=== PATIENT | female | born 1975 | race Caucasian/White ===

== ENCOUNTER → 2019-07-06 17:40 | Outpatient (CLI) | payer MEDICARE, SELFPAY | PROVIDERS: Visit Provider Podiatrist | DX: L57.0 Actinic keratosis (principal); L84 Corns and callosities | CPT/HCPCS: 87102; 87206; 87220; 88305 ==

== ENCOUNTER → 2023-07-26 14:44 | Outpatient (CLI) | payer MEDICAID, SELFPAY ==
--- NOTE | 2023-07-26 14:49 | MM_ITS ---
PROCEDURE INFORMATION: Exam: MG Bilateral Screening 3D Mammography Exam date and time: 07/26/2023 2:39 PM Age: 48 years old Clinical indication: Screening mammogram TECHNIQUE: Imaging protocol: Bilateral Screening tomosynthesis and 2D mammography including computer-aided detection (CAD) when performed. COMPARISON: No relevant prior studies available. FINDINGS: MAMMOGRAPHY: Breast composition: The breast is heterogeneously dense, which may obscure small masses. Mass: None. Architectural distortion: No new or suspicious architectural distortion. Calcifications: No new or suspicious calcifications are present Asymmetric density: No new or suspicious asymmetric density is present Skin thickening: None. Axillary adenopathy: None. IMPRESSION: No mammographic evidence of malignancy. Recommend annual screening mammography unless otherwise clinically indicated. ASSESSMENT: BI-RADS category 1: Negative
== END ==
PROVIDERS: PCP Nurse Practitioner Family; Visit Provider Nurse Practitioner Family
DX: Z12.31 Encounter for screening mammogram for malignant neoplasm of breast (principal)
CPT/HCPCS: 77063; 77067

== ENCOUNTER 2023-10-03 19:40 | Emergency (ER) | payer MEDICAID, SELFPAY ==
[2023-10-03 19:47] VITALS: BP 125/85; PULSE 89; RESP 16; TEMP 36.8; O2SAT 97; BMI 24.7
--- NOTE | 2023-10-03 19:53 | XR_ITS ---
PROCEDURE INFORMATION: Exam: XR Left Knee Exam date and time: 10/03/2023 7:58 PM Age: 48 years old Clinical indication: Pain; Knee; Left; Additional info: Pain, swelling, redness, no injury TECHNIQUE: Imaging protocol: Radiologic exam of the left knee. Views: 3 views. COMPARISON: No relevant prior studies available. FINDINGS: Bones/joints: No acute fracture or malalignment. Minimal joint effusion. Soft tissues: Normal. IMPRESSION: Minimal joint effusion. No acute osseous findings.
[2023-10-03 19:59] VITALS: BP 125/88; PULSE 89; RESP 18; O2SAT 97
--- NOTE | 2023-10-03 20:08 | PC.NURSE ---
patient to rad
--- NOTE | 2023-10-03 20:11 | PC.NURSE ---
back to room per manager radio.
--- NOTE | 2023-10-03 20:28 | HMH.EDGENADL ---
Discharge Plan Disposition Patient Disposition: Home, Self-Care Condition: Good Prescriptions Prescriptions: New naproxen 500 mg tablet 500 mg PO BID Qty: 20 0RF No Action ibuprofen 600 mg tablet 600 mg PO Q6HP PRN (Reason: Pain) Patient Comments: TAKE 1 TABLET BY MOUTH EVERY 8 HOURS NEEDED cephalexin 500 mg capsule 500 mg PO Q8H Patient Comments: TAKE 1 CAPSULE BY MOUTH EVERY 8 HOURS FOR 10 DAYS levothyroxine 112 mcg tablet 112 mcg PO DAILY sumatriptan succinate 50 mg tablet 1 tab PO NEEDED PRN (Reason: Migraine Headache) atomoxetine 80 mg capsule 80 mg PO DAILY paroxetine HCl 40 mg tablet 40 mg PO DAILY mirtazapine 30 mg tablet 30 mg PO DAILY Vraylar 4.5 mg capsule 4.5 mg PO DAILY Patient Comments: TAKE 1 CAPSULE BY MOUTH ONCE DAILY oxybutynin chloride 10 mg tablet extended release 24hr 1 tab PO DAILY prazosin 2 mg capsule 2 mg PO DAILY terconazole 0.8 % cream 1 appful vaginal HS 3 Days Qty: 20 0RF Rx Instructions: apply one application, nightly for 3 nights olanzapine 5 MG tablet 5 mg PO HS Referrals Follow up/Referrals: Jonny Lopez DO [Staff Physician] - See instructions Mellissa Hooks [Primary Care Provider] - See instructions Activity Restrictions/Add. Instructions Additional Instructions/Restrictions: You were evaluated in the emergency department today. At this time, we feel that you likely have knee bursitis. Please pick up worker your prescription for anti-inflammatory at the pharmacy and take the full course as prescribed. Follow-up closely with orthopedics. We have provided you with information for Dr. Lopez. Also follow-up with your primary care provider over the next 3 days. Return to the emergency department for new or worsening symptoms. Clinical Impressions Clinical Impression: Bursitis of left knee Instructions Patient Instructions: DI for Bursitis, DI for Knee Pain Discharge ED Provider: Nuvia Teixeira General Adult HPI General Chief complaint: Extremity Injury, Lower Stated complaint: LT knee pain Time Seen by Provider: 10/03/23 19:59 Mode of Arrival: Family Vehicle Source of Information: Patient Limitations: No Limitations Description of Symptoms (Recalled from ER Triage Doc. by RN): 48 yo female presents with left posterior knee pain and erythema x1 month. No trauma. VSS. Afebrile. Has seen pcp but states is not able to get in to see the ortho prior to november History of Present Illness HPI narrative: This patient is a 48-year-old female who denies significant past medical history presenting to the emergency department for evaluation with concern for pain and swelling behind her left knee that has been going on for approximately a month. She states that she has seen her PCP but is not able to get into see Ortho until November. She denies any injuries, numbness, tingling, wounds, or other concerns. No fevers, chills, or other issues. The patient is otherwise been well. Related Data Home Medications Medication Instructions Recorded Confirmed olanzapine 5 mg tablet 5 mg PO HS Depression 08/31/18 10/03/23 atomoxetine 80 mg capsule 80 mg PO DAILY 02/14/23 10/03/23 cariprazine 4.5 mg capsule 4.5 mg PO DAILY 02/14/23 10/03/23 (Vraylar) cephalexin 500 mg capsule 500 mg PO Q8H 02/14/23 10/03/23 ibuprofen 600 mg tablet 600 mg PO Q6HP PRN Pain 02/14/23 10/03/23 levothyroxine 112 mcg tablet 112 mcg PO DAILY 02/14/23 10/03/23 mirtazapine 30 mg tablet 30 mg PO DAILY 02/14/23 10/03/23 oxybutynin chloride 10 mg 1 tab PO DAILY urinary 02/14/23 10/03/23 tablet,extended release 24 hr paroxetine HCl 40 mg tablet 40 mg PO DAILY 02/14/23 10/03/23 prazosin 2 mg capsule 2 mg PO DAILY 02/14/23 10/03/23 sumatriptan succinate 50 mg tablet 1 tab PO NEEDED PRN Migraine 02/14/23 10/03/23 Headache Previous Rx's Medication Instructions Recorded terconazole 0.8 % vaginal cream
[2023-10-03 21:19] VITALS: BP 116/72; PULSE 86; RESP 16; TEMP 36.6; O2SAT 98
== END 2023-10-03 21:20 | disposition home or self-care (01) ==
PROVIDERS: Emergency Provider Emergency Medicine; PCP Nurse Practitioner Family
DX: M70.52 Other bursitis of knee, left knee (principal); M25.562 Pain in left knee; M25.462 Effusion, left knee; X58.XXXA Exposure to other specified factors, initial encounter
CPT/HCPCS: 73562; 96372; 99283

== ENCOUNTER 2024-12-29 13:28 | Emergency (ER) | payer MEDICAID, SELFPAY ==
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
[2024-12-29 13:40] VITALS: BP 133/57; PULSE 82; RESP 16; TEMP 37; O2SAT 97; BMI 31.3
--- NOTE | 2024-12-29 13:56 | XR_ITS ---
FINAL REPORT CLINICAL HISTORY: Fall, thigh pain FINDINGS: Left knee Three views were obtained. There is no fracture or dislocation. The joint spaces appear normal. No soft tissue abnormality is identified. IMPRESSION: No acute process. Reviewed, Interpreted and Dictated by Dragan Lr MD Transcribed by Laura Dickens Authenticated and . [facility]
--- NOTE | 2024-12-29 13:56 | XR_ITS ---
FINAL REPORT CLINICAL HISTORY: For fever pain FINDINGS: Left hip Three views were obtained. There is no fracture or dislocation. The joint spaces appear normal. No soft tissue abnormality is identified. IMPRESSION: No acute process. Reviewed, Interpreted and Dictated by Dragan Lr MD Transcribed by Laura Dickens Authenticated and . [facility]
[2024-12-29] MEDS: ACETAMINOPHEN 500MG TAB 1000 MG PO (14:20)
[2024-12-29] MEDS: METHOCARBAMOL 500MG TABLET 500 MG PO (14:20)
[2024-12-29] MEDS: IBUPROFEN 400 MG TABLET 800 MG PO (14:20)
[2024-12-29] MEDS: LIDOCAINE 5% TRANSDERMAL PATCH 1 EACH TP (14:20)
--- NOTE | 2024-12-29 14:27 | XR_ITS ---
FINAL REPORT TECHNIQUE: 4 views left femur CLINICAL HISTORY: Fall, left upper leg pain COMPARISON: None FINDINGS: LEFT FEMUR: 4 images of the left femur were obtained. There is no evidence of fracture or dislocation. The joint spaces are intact. There is no soft tissue abnormality identified. IMPRESSION: No acute bony abnormality. Reviewed, Interpreted and Dictated by Dragan Lr MD Transcribed by Dang Mallory Authenticated and [facility]
[2024-12-29 15:36] VITALS: BP 138/85; PULSE 76; RESP 17; TEMP 37; O2SAT 98
== END 2024-12-29 15:38 | disposition home or self-care (01) ==
PROVIDERS: Emergency Provider Emergency Medicine; PCP Nurse Practitioner Family
DX: M79.652 Pain in left thigh (principal); W18.39XA Other fall on same level, initial encounter; Y93.89 Activity, other specified; Y92.007 Garden or yard of unspecified non-institutional (private) residence as the place of occurrence of the external cause
CPT/HCPCS: 73502; 73552; 73562; 99283

== ENCOUNTER 2025-01-03 15:55 | Emergency (ER) | payer MEDICAID, SELFPAY ==
[2025-01-03] VITALS (7 sets, daily range): BP systolic 103–135; BP diastolic 72–88; PULSE 69–86; RESP 16–18; TEMP 36.7–36.8; O2SAT 95–100; BMI 31.3
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
--- NOTE | 2025-01-03 16:14 | XR_ITS ---
PROCEDURE INFORMATION: Exam: XR Right Femur Exam date and time: 01/03/2025 4:29 PM Age: 49 years old Clinical indication: Pain; Thigh; Right; Additional info: [place] pop in R hip, pain, nwb TECHNIQUE: Imaging protocol: Radiologic exam of the right femur. Views: 2 views. COMPARISON: CR XR FEMUR RT 2V 01/03/2025 4:29 PM FINDINGS: Bones/joints: There is no evidence of acute fracture.There is no evidence of malalignment or dislocation. Soft tissues: Unremarkable. IMPRESSION: There is no evidence of acute fracture.There is no evidence of malalignment or dislocation.
--- NOTE | 2025-01-03 16:14 | XR_ITS ---
PROCEDURE INFORMATION: Exam: XR Right Hip Exam date and time: 01/03/2025 4:29 PM Age: 49 years old Clinical indication: Hip pain; Right hip; Additional info: [place] pop in R hip, pain, nwb TECHNIQUE: Imaging protocol: Radiologic exam of the right hip. Views: 2 or 3 views hip with pelvis when performed. COMPARISON: CR XR FEMUR RT 2V 01/03/2025 4:29 PM FINDINGS: Bones/joints: There is no evidence of acute fracture.There is no evidence of malalignment or dislocation. Soft tissues: Unremarkable. IMPRESSION: There is no evidence of acute fracture.There is no evidence of malalignment or dislocation.
[2025-01-03] MEDS: LIDOCAINE 5% TRANSDERMAL PATCH 1 EACH TP (16:38)
[2025-01-03] MEDS: METHOCARBAMOL 500MG TABLET 500 MG PO (16:38)
[2025-01-03] MEDS: ACETAMINOPHEN 500MG TAB 1000 MG PO (16:38)
[2025-01-03] MEDS: KETOROLAC 30MG/ML VIAL 30 MG IM (16:39)
--- NOTE | 2025-01-03 17:00 | ED_ITS ---
Discharge Plan Disposition Patient Disposition: Home, Self-Care Condition: Good Prescriptions Prescriptions: No Action levothyroxine 112 mcg tablet 112 mcg PO DAILY paroxetine HCl 40 mg tablet 40 mg PO DAILY mirtazapine 30 mg tablet 30 mg PO DAILY prazosin 2 mg capsule 2 mg PO DAILY Vraylar 4.5 mg capsule 6 mg PO DAILY Patient Comments: TAKE 1 CAPSULE BY MOUTH ONCE DAILY buprenorphine-naloxone [Suboxone] 8-2 mg film sublingual meloxicam 7.5 mg tablet 7.5 mg PO Patient Comments: TAKE ONE TABLET BY MOUTH ONCE DAILY NEEDED buspirone 30 mg tablet 30 mg PO Patient Comments: TAKE ONE TABLET BY MOUTH TWICE DAILY citalopram 10 mg tablet 10 mg PO Patient Comments: TAKE ONE TABLET BY MOUTH DAILY FOR depression trazodone 50 mg tablet 50 mg PO Patient Comments: TAKE ONE TABLET BY MOUTH NIGHTLY AT BEDTIME quetiapine 100 mg tablet 100 mg PO Patient Comments: TAKE ONE TABLET BY MOUTH AT BEDTIME guanfacine 2 mg tablet extended release 24 hr PO Patient Comments: TAKE ONE TABLET BY MOUTH EVERY EVENING for ADHD propranolol 20 mg tablet 20 mg PO Patient Comments: TAKE ONE TABLET BY MOUTH TWICE DAILY NEEDED FOR panic cetirizine 10 mg tablet 10 mg PO Patient Comments: TAKE ONE TABLET BY MOUTH ONCE DAILY polyethylene glycol 3350 [ClearLax] 17 gram/dose powder 17 g PO Patient Comments: mix 17 grams into 8 ounces of liquid and drink once daily for constipation famotidine 40 mg tablet 40 mg PO Patient Comments: TAKE ONE TABLET BY MOUTH ONCE DAILY NEEDED prazosin 5 mg capsule 5 mg PO Patient Comments: TAKE ONE CAPSULE BY MOUTH AT BEDTIME permethrin 5 % cream topical Patient Comments: APPLY (THOROUGHLY MASSAGE INTO SKIN FROM HEAD TO SOLES OF FEET) BY TOPICAL ROUTE ONCE LEAVE ON FOR 8-14 HouRs, THEN REMOVE BY THOROUGH WASHING lamotrigine 200 mg tablet 200 mg PO Patient Comments: TAKE ONE TABLET BY MOUTH EVERY DAY methocarbamol 750 mg tablet 750 mg PO Q6H PRN (Reason: muscle spasm) Qty: 20 0RF Referrals Follow up/Referrals: Jonny Lopez DO [Staff Physician] - See instructions Mellissa Hooks [Primary Care Provider] - See instructions Activity Restrictions/Add. Instructions Additional Instructions/Restrictions: You were evaluated in the emergency department today. Please follow-up closely with orthopedics as well as with your primary care provider if you continue to have significant hip pain. Take Tylenol and ibuprofen every 4-6 hours as needed for pain. Return to the emergency department for new or worsening symptoms. Clinical Impressions Clinical Impression: Acute pain of right hip Stand Alone Forms Stand Alone Forms: Work/School Release Instructions Patient Instructions: DI for Muscle Strain, DI for Hip Pain Print Language Print Language: Swedish Discharge ED Provider: Nuvia Teixeira General Adult HPI General Chief complaint: Extremity Injury, Lower Stated complaint: right leg pain and cant walk on it Time Seen by Provider: 01/03/25 16:07 Mode of Arrival: Ambulatory Source of Information: Patient Limitations: No Limitations Description of Symptoms (Recalled from ER Triage Doc. by RN): Patient presents to triage via wheelchair. States yesterday she was walking when she heard a pop. States today, the pain in her right leg has been so intense she cannot walk on it. States she had a similar problem with her left leg two weeks ago. Patient states she is on Suboxone and requests no opiates. Patient tearful in triage. History of Present Illness HPI narrative: This patient is a 49-year-old female with history of depression, anxiety, bipolar disorder, OCD, and hypothyroidism presenting to the emergency department for evaluation with concern for right leg pain. Patient states she was walking yesterday and heard a loud pop in her leg. No fall noted. She states that since then, she has not been able to bear weight on her right lower extremity to walk. Pain is about her right hip. No numbness, tingling, or other concerns. Of note, patient was seen here 12/29/24 with similar complaints of her left lower extremity after a fall. At that time, x-rays were reassuring. She notes that her left leg is been doing a lot better since then and she is now able to walk on her left leg, is just the right leg this now her only concern. Related Data Home Medications ?Medication ?Instructions ?Recorded ?Confirmed levothyroxine 112 mcg tablet 112 mcg PO DAILY 02/14/23 12/29/24 mirtazapine 30 mg tablet 30 mg PO DAILY 02/14/23 12/29/24 paroxetine HCl 40 mg tablet 40 mg PO DAILY 02/14/23 12/29/24 prazosin 2 mg capsule 2 mg PO DAILY 02/14/23 12/29/24 buprenorphine 8 mg-naloxone 2 mg sublingual 12/29/24 12/29/24 sublingual film (Suboxone) buspirone 30 mg tablet 30 mg PO 12/29/24 12/29/24 cariprazine 4.5 mg capsule 6 mg PO DAILY 12/29/24 12/29/24 (Vraylar) cetirizine 10 mg tablet 10 mg PO 12/29/24 12/29/24 citalopram 10 mg tablet 10 mg PO 12/29/24 12/29/24 famotidine 40 mg tablet 40 mg PO 12/29/24 12/29/24 guanfacine 2 mg tablet,extended mg PO 12/29/24 12/29/24 release 24 hr lamotrigine 200 mg tablet 200 mg PO 12/29/24 12/29/24 meloxicam 7.5 mg tablet 7.5 mg PO 12/29/24 12/29/24 permethrin 5 % topical cream applic topical 12/29/24 12/29/24 polyethylene glycol 3350 17 17 g PO 12/29/24 12/29/24 gram/dose oral powder (ClearLax) prazosin 5 mg capsule 5 mg PO 12/29/24 12/29/24 propranolol 20 mg tablet 20 mg PO 12/29/24 12/29/24 quetiapine 100 mg tablet 100 mg PO 12/29/24 12/29/24 trazodone 50 mg tablet 50 mg PO 12/29/24 12/29/24 Previous Rx's ?Medication ?Instructions ?Recorded methocarbamol 750 mg tablet 750 mg PO Q6H PRN muscle spasm #20 12/29/24 tabs Allergies Allergy/AdvReac Type Severity Reaction Status Date / Time latex (LATEX) Allergy Unknown Unknown Verified 12/29/24 14:51 allergy reaction morphine (MORPHINE) Allergy Unknown Unknown Verified 12/29/24 14:51 allergy reaction milk AdvReac Nausea Verified 12/29/24 14:51 Milk Containing Products AdvReac Nausea Verified 12/29/24 14:51 (Dairy) [facility] Disclaimer: The information contained in this section may have been updated after the patient was seen, as this information can be updated by other users. Medical History History of hyperthyroidism OCD (obsessive compulsive disorder) Migraine Depression Anxiety Bipolar 1 disorder Surgical History H/O tubal ligation H/O thyroidectomy Social History Smoking Status: Never smoker alcohol intake: current alcohol intake frequency: a few times a month substance use type: denies use current occupational status: disabled Travel in the last 8 weeks: None Have you lived/traveled outside US in past 30 days?: No Contact w/someone who lives/traveled outside US past 30 days?: No Exposure to someone with infectious disease in past 14 days?: No Do you have a fever (greater than 100.4 F or 38 C)?: No Have you tested positive for COVID-19: No Exposed to someone with COVID-19 in past 14 days?: No Do you have a sore throat?: No Do you have a cough?: No Do you have any weakness?: No Do you have any diarrhea?: No Are you experiencing any unusual bleeding?: No Do you have any muscle aches/pain?: No Do you have any abdominal pain?: No Are you experiencing loss of taste or smell?: No Other Medical History Have you received the Pneumonia Vaccine: No ROS Obtained: Yes All systems reviewed & no additional complaints except as documented Physical Exam General General appearance: alert and in no apparent distress Head Head exam: atraumatic and normocephalic Eye Eye exam: Present normal appearance, PERRL and EOMI ENT ENT exam: Present normal exam, normal oropharynx, mucous membranes moist and normal external ear exam Neck Neck exam: Present normal inspection, full ROM and trachea midline; Absent tenderness Chest Chest inspection: Present normal inspection and symmetric chest wall rise; Absent tenderness Respiratory Respiratory exam: Present normal lung sounds bilaterally; Absent respiratory distress, wheezes, stridor or accessory muscle use Cardiovascular Cardiovascular exam: Present regular rate and normal rhythm Abdominal Exam Abdominal exam: Present soft; Absent distention, tenderness or guarding Extremities Exam Extremities exam: Present tenderness, normal capillary refill and other (Tender to palpation of the right hip with no obvious deformity noted. Limited range of motion of the right hip secondary to pain. No redness, warmth, skin changes. Neurovascularly intact distally.); Absent full ROM or edema Back Exam Back exam: Present normal inspection and full ROM; Absent tenderness Neurological Exam Neurological exam: Present alert, oriented X3 and CN II-XII intact; Absent motor sensory deficit Psychiatric Psychiatric exam: Present normal affect and normal mood Skin Skin exam: Present warm and dry Medical Decision Making Medical Records Medical records reviewed: Yes I reviewed the patient's medical records. Screening: Per USPSTF and CDC recommendations, given the prevalence of disease in our region, it is our hospital?s policy to screen for HIV and viral Hepatitis for all patients aged 18 and over and those with ongoing risk factors. Danish Inquiry Pt receiving controlled substance: No Vital Signs: 01/03/25 15:58 01/03/25 16:15 01/03/25 16:50 Temperature 98.1 F Temperature Source Oral Pulse Rate 78 86 Pulse Rate [Radial] 83 Respiratory Rate 16 Blood Pressure 135/88 103/72 L Blood Pressure [R Arm] 133/88 Blood Pressure Mean Blood Pressure Mean [R Arm] 103 Blood Pressure Source Blood Pressure Position 02 Sat by Pulse Oximetry 98 100 95 Oxygen Delivery Method Room Air Room Air Room Air 01/03/25 17:00 01/03/25 17:30 01/03/25 18:00 Temperature Temperature Source Pulse Rate 73 73 69 Pulse Rate [Radial] Respiratory Rate Blood Pressure 119/74 111/80 130/78 Blood Pressure [R Arm] Blood Pressure Mean 91 Blood Pressure Mean [R Arm] Blood Pressure Source Blood Pressure Position 02 Sat by Pulse Oximetry 97 97 96 Oxygen Delivery Method Room Air Room Air Room Air 01/03/25 18:20 Temperature 98.2 F Temperature Source Oral Pulse Rate 74 Pulse Rate [Radial] Respiratory Rate 18 Blood Pressure 122/74 Blood Pressure [R Arm] Blood Pressure Mean Blood Pressure Mean [R Arm] Blood Pressure Source Automatic Cuff Blood Pressure Position Sitting 02 Sat by Pulse Oximetry Oxygen Delivery Method Room Air Lab Data Lab results reviewed: Yes I reviewed the patient's lab results. Orders (Tests/Meds): ED MEDICATIONS Discontinued Medications Generic Name Dose Route Start Last Admin Trade Name Freq PRN Reason Stop Dose Admin Acetaminophen 1,000 mg 01/03/25 16:14 01/03/25 16:38 Acetaminophen 500mg Tab PO 01/03/25 16:15 1,000 mg ONCE ONE Administration Ketorolac Tromethamine 30 mg 01/03/25 16:14 01/03/25 16:39 Ketorolac 30mg/Ml Vial IM 01/03/25 16:15 30 mg ONCE ONE Administration Lidocaine 1 each 01/03/25 16:14 01/03/25 16:38 Lidocaine 5% Transdermal Patch TP 01/03/25 16:15 1 each ONCE ONE Administration Methocarbamol 500 mg 01/03/25 16:15 01/03/25 16:38 Methocarbamol 500mg Tablet PO 01/03/25 16:16 500 mg ONCE ONE Administration ORDERS Category Date Time Status Femur XR right 2 views [XR femur RT 2V] Stat Exams 01/03/25 16:14 Completed Hip XR right minimum 2 views [XR hip RT 2-3V w/pelvis] Exams 01/03/25 16:14 Completed Stat Knee XR right 3 views [XR knee RT 3V] Stat Exams 01/03/25 16:14 Completed Medical Decision Narrative: In summary, this patient is a 49-year-old female presenting to the Emergency Department for evaluation of right hip pain after feeling a pop while walking. Differential diagnoses considered include but are not limited to fracture, contusion, strain/sprain, avascular necrosis, neurovascular injury. Ruling out the most morbid conditions drove assessment. It should be noted patient's history includes psychiatric history which is not at goal therapy. This complicates all aspects of care by increasing patient's risk for morbidity. I reviewed patient's past medical records and noted evaluation 12/29/24 for left thigh pain, at which point x-rays are reassuring and the patient was discharged. She notes that her pain in her left hip is doing better. On exam, the patient is lying in bed. She is tearful and tender over her right hip, limited range of motion of the right hip secondary to pain. Neurovascularly intact. All compartments soft. Workup included x-rays of the right hip/pelvis, right femur, right knee. Patient is on Suboxone, so for pain she was given IM Toradol, oral Tylenol, oral Robaxin, topical Lidoderm patch.. I independently interpreted x-rays prior to the radiologist read and noted no acute fracture. Please see their read for final interpretation. On reassessment, patient is feeling better. She remains neurovascularly intact in her extremity. She is able to ambulate and bear weight, but she has some pain and trouble with it. Given this, I provided her with crutches. Given continued pain with negative x-rays, I recommended close follow-up with orthopedics. She expressed understanding and agreement. The patient was discharged after all questions were answered with instructions for close follow- up with orthopedics and instructions for supportive management. Critical Care Critical Care Time Critical Care Time: No
--- NOTE | 2025-01-03 18:01 | PC.NURSE ---
ROUNDED ON THE PT. THE PT VOICES THAT SHE DOES NOT NEED ANYTHING AT THIS TIME. CALL LIGHT IS WITHIN REACH OF THE PT.
--- NOTE | 2025-01-03 18:14 | PC.NURSE ---
PT AMBULATED WITH LIMP, BUT REPORTS PAIN IS BETTER
--- NOTE | 2025-01-03 18:16 | PC.NURSE ---
DR CAREY AT BEDSIDE TO UPDATE PT
== END 2025-01-03 18:20 | disposition home or self-care (01) ==
PROVIDERS: Emergency Provider Emergency Medicine; PCP Nurse Practitioner Family
DX: M25.551 Pain in right hip (principal); M79.604 Pain in right leg
CPT/HCPCS: 73502; 73552; 73562; 96372; 99283; J1885

== ENCOUNTER 2025-01-25 08:56 | Outpatient (CLI) | payer MEDICAID, SELFPAY ==
--- NOTE | 2025-01-25 09:02 | MR_ITS ---
FINAL REPORT CLINICAL HISTORY: Bilateral hip pain and pelvis pain after a fall. pain worse on the right side FINDINGS: Multiplanar MR images of the pelvis were performed without contrast. There is extensive marrow edema of the right femoral neck where there is a transverse, nondisplaced fracture of the intertrochanteric right femur. There is mild surrounding soft tissue edema. There is moderate marrow edema of the medial left femoral neck and proximal femoral shaft which is incomplete. Fracture extends just above the lesser trochanter into the intertrochanteric neck likely representing a stress fracture. There are mild degenerative changes of the hips bilaterally. A moderate-sized joint effusion is seen. Muscles and tendons are unremarkable. Labrum is intact. IMPRESSION: Subacute, nondisplaced intertrochanteric right femoral fracture. Incomplete fracture of the left femoral neck and proximal femoral shaft likely related to stress fracture. BJ, at Dr. Baker' office was notified of these findings at 11:18 AM. Reviewed, Interpreted and Dictated by Sandra Galeano MD Transcribed by Bernadine Du Authenticated and [facility]
== END 2025-01-25 23:59 | disposition home or self-care (01) ==
LOC: RAD 08:57
PROVIDERS: PCP Nurse Practitioner Family; Visit Provider Physician Assistant
DX: M25.551 Pain in right hip (principal); M25.552 Pain in left hip
CPT/HCPCS: 72195

== ENCOUNTER 2025-02-01 07:45 | Outpatient (CLI) | payer MEDICAID, SELFPAY ==
--- NOTE | 2025-02-01 08:13 | ECG_ITS ---
APPROVED REPORT Exam: Resting ECG HR:85 bpm ECG Measurements Heart Rate 85 AXES MO 130 P 63 QRSd 110 QRS 24 QT 383 T 37 QTc 426 Conclusion SINUS RHYTHM LOW QRS VOLTAGE IN PRECORDIAL LEADS [QRS DEFLECTION < 1.0 mV IN CHEST LEADS] NONSPECIFIC T-WAVE ABNORMALITY BORDERLINE ECG UNCONFIRMED REPORT Electronically signed by : Zay Rajput MD 02/01/2025 13:59:41
[2025-02-01 08:20] VITALS: BMI 31.3
[2025-02-01 10:34] LABS: Basophils # 0.1 K/mm3 (0-0.2); Basophils % 0.7 % (0.1-2.0); Eosinophils # 0.3 K/mm3 (0.0-0.4); Eosinophils % 3.7 % (0.1-12.0); Hematocrit 33.1 % (37.0-47.0); Hemoglobin 10.9 g/dL (12.2-16.2); Lymphocytes # 2.1 K/mm3 (0.7-4.5); Lymphocytes % 31.2 % (10-50); Mean Corpuscular HGB Conc 32.9 g/dL (31.8-35.4); Mean Corpuscular Hemoglobin 30.1 pg (27.0-31.2); Mean Corpuscular Volume 91.4 fl (81-99); Mean Platelet Volume 9.8 fl (7.4-10.4); Monocytes # 0.5 K/mm3 (0.1-1.0); Monocytes % 6.7 % (1.7-9.3); Neutrophils # 3.9 K/mm3 (1.8-7.8); Neutrophils % 57.4 % (37.0-80.0); Platelet Count 279 K/mm3 (142-424); Red Blood Count 3.62 M/mm3 (4.20-5.40); Red Cell Distribution Width 12.4 % (11.5-17.5); White Blood Count 6.7 K/mm3 (4.8-10.8)
[2025-02-01 10:37] LABS: Chloride 107 mmol/L (98-107); Sodium 141 mmol/L (136-145)
[2025-02-01 10:40] LABS: Blood Urea Nitrogen 22 mg/dl (7-17); Carbon Dioxide 27 mmol/L (22.0-30.0); Creatinine Clearance Estimated 110 mL/min (50-200); Estimated Glomerular Filt Rate 77 ml/min (>60); GFR (African American) 93 ML/MIN (>60)
[2025-02-01 10:41] LABS: Calcium 9.5 mg/dl (8.4-10.2); Glucose 101 mg/dl (74-100)
== END 2025-02-01 23:59 | disposition home or self-care (01) ==
LOC: PREOP 07:46
PROVIDERS: Nurse Anesthetist, Certified Registered; PCP Nurse Practitioner Family; Visit Provider Orthopaedic Surgery
DX: Z01.810 Encounter for preprocedural cardiovascular examination (principal); R94.31 Abnormal electrocardiogram [ECG] [EKG]
CPT/HCPCS: 80048; 85025; 93005

== ENCOUNTER 2025-02-03 18:18 | Inpatient (IN) | payer MEDICAID, SELFPAY ==
--- NOTE | 2025-01-28 15:04 | SW/DCPLANNER ---
Addendum entered by Smiley Byrd RN 02/05/25 10:17: Patient Choice signed for [facility]. Order for BSC and rolling walker faxed and will be delivered to bedside prior to discharge. Addendum entered by Dana Agustin 02/05/25 08:23: Patient is alert and oriented this AM. Patient states that she feels comfortable to return home today but will need a bedside commode and a rolling walker. Patient is agreeable to outpatient PT services in [place]. I did inform patient that her friend America had left me a voicemail regarding discharge planning. Patient stated that she will contact America back later this afternoon. Patient should discharge home today. Addendum entered by Dana Agustin 02/04/25 13:04: Patient plans to return home w/ spouse tomorrow and establish care w/ outpatient PT in [place] on 02/08. Patient voiced she will need a rolling walker from [facility] prior to discharge. Addendum entered by Dana Agustin 02/04/25 09:24: PT/OT evaluation has been ordered and I will follow up w/ patient once completed. Addendum entered by Dana Agustin 01/28/25 15:43: I have contacted Eryn pulliam/ [place] outpatient PT and scheduled patient for therapy on next available date 02/08/2025 at 9AM. I have also contacted Dr Coffey office and asked that an outpatient PT order be faxed to [facility]. Original Note: I called and spoke w/ this patient regarding upcoming procedures. Patient stated that she resides at home w/ her boyfriend whom is home w/ her 24-7. Patient stated that she plans to return back home at time of discharge. I did explain to patient that I would not be able to establish w/ home health services but could set up outpatient PT in [place]. Patient is agreeable to outpatient services and stated that she will have transportation. Patient stated that she is currently using crutches at home but would benefit from a rolling walker. CM will order a rolling walker at time of hospital admission. I will continue to follow up w/ this patient and assist w/ any new needs or orders.
[2025-01-29 08:24] VITALS: BMI 31.3
[2025-02-01 10:03] VITALS: BMI 31.3
[2025-02-03] VITALS (18 sets, daily range): BP systolic 117–159; BP diastolic 57–88; PULSE 81–126; RESP 16–18; TEMP 36.4–43; O2SAT 94–99; BMI 31.4
[2025-02-03 11:51] LABS: HCG Qualitative, Serum Negative (Negative)
[2025-02-03] MEDS: LACTATED RINGERS 1000ML 1,000 ML 100 ML IV (11:57)
--- NOTE | 2025-02-03 13:57 | P.PNANES_ITS ---
[facility] Disclaimer: The information contained in this section may have been updated after the patient was seen, as this information can be updated by other users. Medical History History of thyroid cancer History of hyperthyroidism OCD (obsessive compulsive disorder) Migraine Depression Anxiety Bipolar 1 disorder Surgical History History of D&C H/O tubal ligation H/O thyroidectomy Family History Other No significant family history Social History (Updated 02/03/25 @ 11:48 by Natasha Spann RN) Smoking Status: Never smoker alcohol intake: never substance use type: denies use current occupational status: unemployed Travel in the last 8 weeks: None Have you lived/traveled outside US in past 30 days?: No Contact w/someone who lives/traveled outside US past 30 days?: No Exposure to someone with infectious disease in past 14 days?: No Do you have a fever (greater than 100.4 F or 38 C)?: No Have you tested positive for COVID-19: No Exposed to someone with COVID-19 in past 14 days?: No Do you have a sore throat?: No Do you have a cough?: No Do you have any weakness?: No Are you experiencing any nausea/vomitting?: No Do you have any diarrhea?: No Are you experiencing any unusual bleeding?: No Do you have any muscle aches/pain?: No Do you have any abdominal pain?: No Are you experiencing loss of taste or smell?: No [facility] Anesthesia Checklist Patient Identification Patient Identification: Arm Band Structural Data Admitted From: Home Planned Operative Procedure/s: Right Femur Cephalomedullary Nailing, Percutaneous Fixation Left Femur Consent for Planned Operative Procedure(s) Verified: Yes Verified Documents: Surgical Consent NPO Status Verified Time NPO: 00:00 Additional verifications Anesthesia Reactions: No Hx Blood Transfusions: No Blood Transfusion Reaction: No Airway Assessment Mallampati Score:: Class II C-Spine Mobility Assessed: Yes TMJ Mobility Assessed: Yes Dentition: Dentures-good fit (removed) Neurological Assessment Level of Consciousness: Awake, Alert and Appropriate Anesthesia Plan Anesthesia Risk discussed: Yes Anesthesia Plan: Verified ASA Class: III Anesthesia Type: General
[2025-02-03] MEDS: CEFAZOLIN SODIUM 2 GM in 0.9 % SODIUM CHLORIDE 100 ML IV (15:00)
--- NOTE | 2025-02-03 17:14 | SUR.OPER ---
1551- time out performed for left side first at this time 1647- time out performed for right side
--- NOTE | 2025-02-03 18:28 | XR_ITS ---
FINAL REPORT CLINICAL HISTORY: NAILING IN OR 4.2 MIN 72.68 mGy FINDINGS: FLUOROSCOPY LESS THAN 1 HOUR HISTORY: FINDINGS: Fluoroscopic guidance was provided for needle placement in right proximal femur. 2 spot films were obtained. 4.2 minutes of fluoroscopy time were used, with a dosage of 72.68 mGy. IMPRESSION: As above. Reviewed, Interpreted and Dictated by Dragan Lr MD Transcribed by Dang Mallory Authenticated and [facility]
--- NOTE | 2025-02-03 18:28 | XR_ITS ---
FINAL REPORT CLINICAL HISTORY: FEMORAL NAILING IN OR 1.3 MIN 34.18 mGy COMPARISON: None FINDINGS: FLUOROSCOPY LESS THAN 1 HOUR HISTORY: FINDINGS: Fluoroscopic guidance was provided for orthopedic canal placement in left hip. 2 spot films were obtained. 1.3 minutes of fluoroscopy time were used, with a dosage of 34.18 mGy. IMPRESSION: As above. Reviewed, Interpreted and Dictated by Dragan Lr MD Transcribed by Dang Mallory Authenticated and . [facility]
--- NOTE | 2025-02-03 18:42 | P.PNANES_ITS ---
[facility] Anesthesia Record Part I Anesthesia Record I Intake, IV Amount: 1,600 Hydration: Adequate Estimated blood loss (mL): 350 Urine output (mL): 475 Blood Products used (#): none Blood Pressure: 117/59 SaO2: 97 Pulse Rate: 125 Airway Patency: Patent Respiratory Rate: 18 Temperature: 97.6 F Patient is:: Awake (Crying) and Stable Stable to PACU at:: 18:35
[2025-02-03] MEDS: HYDROMORPHONE 2MG/ML SYRINGE IV ×2 (18:45→18:55)
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
[2025-02-03] MEDS: LACTATED RINGERS 1000ML 1,000 ML 50 ML IV (20:31)
[2025-02-03] MEDS: HYDROMORPHONE 2MG/ML SYRINGE 0.5 MG IV (20:31)
[2025-02-03 20:36] LABS: Basophils # 0.1 K/mm3 (0-0.2); Basophils % 0.4 % (0.1-2.0); Eosinophils % 0.2 % (0.1-12.0); Hematocrit 30.6 % (37.0-47.0); Hemoglobin 10.2 g/dL (12.2-16.2); Lymphocytes % 6.8 % (10-50); Mean Corpuscular HGB Conc 33.3 g/dL (31.8-35.4); Mean Platelet Volume 9.2 fl (7.4-10.4); Monocytes # 0.3 K/mm3 (0.1-1.0); Neutrophils # 13.5 K/mm3 (1.8-7.8); Neutrophils % 90.2 % (37.0-80.0); Platelet Count 286 K/mm3 (142-424); Red Blood Count 3.29 M/mm3 (4.20-5.40); White Blood Count 14.9 K/mm3 (4.8-10.8)
[2025-02-03 20:37] LABS: Chloride 103 mmol/L (98-107); Sodium 137 mmol/L (136-145)
[2025-02-03 20:40] LABS: Blood Urea Nitrogen 15 mg/dl (7-17); Carbon Dioxide 27 mmol/L (22.0-30.0); Creatinine Clearance Estimated 110 mL/min (50-200); Estimated Glomerular Filt Rate 77 ml/min (>60); GFR (African American) 93 ML/MIN (>60); MANUAL DIFFERENTIAL MANUAL DIFFERENTIAL (MANUAL DIFF)
[2025-02-03 20:41] LABS: Calcium 9.5 mg/dl (8.4-10.2); Glucose 127 mg/dl (74-100)
[2025-02-03] MEDS: CEFAZOLIN SODIUM 1 GM in 0.9 % SODIUM CHLORIDE 50 ML IV (21:03)
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
[2025-02-03 21:16] LABS: Lymphocytes % 9 % (10-50); Neutrophils % 91 % (42-76); Total Cells Counted 100
[2025-02-03 21:17] LABS: Platelet Estimate Normal; Stomatocytes 1+
[2025-02-03 22:06] LABS: Microscopic,Cath URINE MICROSCOPIC (MICROSCOPIC)
[2025-02-03 22:50] LABS: Appearance,Urine/Cath Clear (Clear); Color,Urine/Cath Yellow (Yellow); PH,Urine/Cath 7.5 (5.0-8.5)
[2025-02-03 22:51] LABS: Bilirubin,Cath Negative (Negative); Blood, Urine/Cath Negative (Negative); Glucose,Urine/Cath (UA) Negative (Negative); Ketones,Urine/Cath Negative (Negative); Leukocyte Esterase,Cath Negative (Negative); Nitrate,Cath Negative (Negative); Protein,Urine/Cath Negative (Negative); Urobilinogen,Cath 0.2 EU/dl (0.2)
[2025-02-03] MEDS: HYDROCODONE/APAP 5/325 MG TABLET 2 TAB PO (23:09)
[2025-02-03 23:19] LABS: Amorphous Sediment,Ur/Cath 1+ /lpf; RBC,Urine/Cath Occasional # /hpf (0-3); WBC,Urine/Cath Occasional #/hpf (0-3)
--- NOTE | 2025-02-03 23:36 | PC.NURSE ---
pt arrived to floor from PACU via bed at 1920.
[2025-02-04] VITALS (9 sets, daily range): BP systolic 104–132; BP diastolic 53–81; PULSE 90–116; RESP 16–20; TEMP 36.4–36.9; O2SAT 94–100; BMI 31.8
[2025-02-04] MEDS: HYDROMORPHONE 2MG/ML SYRINGE 0.5 MG IV ×4 (04:48→19:18)
[2025-02-04] MEDS: CEFAZOLIN SODIUM 1 GM in 0.9 % SODIUM CHLORIDE 50 ML IV (05:52)
[2025-02-04 06:45] LABS: Basophils % 0.4 % (0.1-2.0); Lymphocytes # 2.1 K/mm3 (0.7-4.5); Mean Corpuscular HGB Conc 32.1 g/dL (31.8-35.4); Mean Corpuscular Hemoglobin 29.6 pg (27.0-31.2); Mean Corpuscular Volume 92.1 fl (81-99); Mean Platelet Volume 9.8 fl (7.4-10.4); Monocytes # 0.7 K/mm3 (0.1-1.0); Monocytes % 9.5 % (1.7-9.3); Neutrophils # 4.9 K/mm3 (1.8-7.8); Neutrophils % 62.8 % (37.0-80.0); Platelet Count 254 K/mm3 (142-424); Red Blood Count 3.04 M/mm3 (4.20-5.40); White Blood Count 7.8 K/mm3 (4.8-10.8)
[2025-02-04 07:25] LABS: Anion Gap 10.9 mEq/L (5-15); Blood Urea Nitrogen 13 mg/dl (7-17); Calcium 8.7 mg/dl (8.4-10.2); Carbon Dioxide 29 mmol/L (22.0-30.0); Chloride 105 mmol/L (98-107); Creatinine Clearance Estimated 112 mL/min (50-200); Estimated Glomerular Filt Rate 77 ml/min (>60); GFR (African American) 93 ML/MIN (>60); Glucose 85 mg/dl (74-100); Potassium 3.9 mmoL/L (3.5-5.1); Sodium 141 mmol/L (136-145)
--- NOTE | 2025-02-04 07:31 | P.PNANES_ITS ---
[facility] Anesthesia Record Part II Anesthesia Record Part II Discharge Time: 19:00 Destination: Medical Surgical Department PACU nurse assessment reviewed?: Yes Patient Condition:: Good Anesthesia Complications:: None Swallowing reflex intact?: Yes Airway Patency: Patent Cyanosis?: No Blood Pressure: 119/81 SaO2: 97 Respiratory Rate: 18 Pulse Rate: 90 Temperature: 97.6 F Mental Status: Alert & Oriented Pain level:: 4 Nausea and/or vomitting:: None Intake, IV Amount: 1,600 Hydration: Adequate
[2025-02-04] MEDS: HYDROCODONE/APAP 5/325 MG TABLET 2 TAB PO ×4 (08:03→21:35)
[2025-02-04] MEDS: ASPIRIN 81MG CHEWABLE TABLET 81 MG PO ×2 (08:04→20:12)
[2025-02-04] MEDS: hydrOXYzine pamoate 25MG CAPSULE 50 MG PO ×2 (08:06→21:35)
--- NOTE | 2025-02-04 09:00 | HMH.PHAINT1 ---
Pharmacy Intervention Comments: MEDICATION RECONCILIATION COMPLETED ON PATIENT USING EXTERNAL FILL HISTORY FROM PHARMACY. -ZENY MATHEW, STEPHEND
--- NOTE | 2025-02-04 09:10 | P.CONS_ITS ---
History of Present Illness *Admission Date: 02/03/25 *History of present illness: Patient initially seen in office, consented for L percutaneous pinning of hip and R TFN on 02/03/[address] Lopez. Seen today POD#1 with c/o pain improved with pain medications and some apresthesiasis into lower extremities new after surgery but possibly due to the way she is lying in bed. Denies AZEVEDO, dizziness, CP, SOB, N/V, calf pain. [facility] Disclaimer: The information contained in this section may have been updated after the patient was seen, as this information can be updated by other users. Medical History History of thyroid cancer History of hyperthyroidism OCD (obsessive compulsive disorder) Migraine Depression Anxiety Bipolar 1 disorder Surgical History History of D&C H/O tubal ligation H/O thyroidectomy Family History Other No significant family history Social History Smoking Status: Never smoker alcohol intake: never substance use type: denies use current occupational status: unemployed Travel in the last 8 weeks: None Have you lived/traveled outside US in past 30 days?: No Contact w/someone who lives/traveled outside US past 30 days?: No Exposure to someone with infectious disease in past 14 days?: No Do you have a fever (greater than 100.4 F or 38 C)?: No Have you tested positive for COVID-19: No Exposed to someone with COVID-19 in past 14 days?: No Do you have a sore throat?: No Do you have a cough?: No Do you have any weakness?: No Are you experiencing any nausea/vomitting?: No Do you have any diarrhea?: No Are you experiencing any unusual bleeding?: No Do you have any muscle aches/pain?: No Do you have any abdominal pain?: No Are you experiencing loss of taste or smell?: No Review of Systems *Neurologic Neurologic: Reports system reviewed and no additional complaints, except as documented Meds Home Medications and Allergies Home Medications ?Medication ?Instructions ?Recorded ?Confirmed ?Type levothyroxine 112 mcg tablet 112 mcg PO DAILY 02/14/23 02/01/25 History mirtazapine 30 mg tablet 30 mg PO DAILY 02/14/23 02/01/25 History buspirone 30 mg tablet 30 mg PO BID 12/29/24 02/04/25 History cetirizine 10 mg tablet 10 mg PO DAILY 12/29/24 02/01/25 History citalopram 10 mg tablet 10 mg PO DAILY 12/29/24 02/01/25 History famotidine 40 mg tablet 40 mg PO DAILYP PRN Heartburn 12/29/24 02/04/25 History guanfacine 2 mg tablet,extended 2 mg PO HS 12/29/24 02/04/25 History release 24 hr lamotrigine 200 mg tablet 200 mg PO DAILY 12/29/24 02/01/25 History meloxicam 7.5 mg tablet 7.5 mg PO DAILYP PRN Mild Pain 12/29/24 02/04/25 History (Scale Score 1-4) permethrin 5 % topical cream 1 applic topical DAILY 12/29/24 02/01/25 History polyethylene glycol 3350 17 17 g PO DAILY 12/29/24 02/01/25 History gram/dose oral powder (ClearLax) prazosin 5 mg capsule 5 mg PO DAILY 12/29/24 02/01/25 History propranolol 20 mg tablet 20 mg PO BIDP PRN Panic Attack(S) 12/29/24 02/04/25 History trazodone 50 mg tablet 50 mg PO HS 12/29/24 02/04/25 History buprenorphine 8 mg-naloxone 2 mg 2 film sublingual DAILY 02/04/25 02/04/25 History sublingual film (Suboxone) cariprazine 6 mg capsule (Vraylar) 6 mg PO DAILY 02/04/25 02/04/25 History hydroxyzine pamoate 25 mg capsule 25 mg PO TIDP PRN Anxiety 02/04/25 02/04/25 History methocarbamol 750 mg tablet 750 mg PO Q6HP PRN muscle spasm 02/04/25 02/04/25 History paroxetine HCl 40 mg tablet 20 mg PO DAILY 02/04/25 02/04/25 History quetiapine 100 mg tablet 100 mg PO HS 02/04/25 02/04/25 History New Prescriptions to Start Prescriptions: Allergies Allergy/AdvReac Type Severity Reaction Status Date / Time latex (LATEX) Allergy Unknown Unknown Verified 02/03/25 11:44 allergy reaction morphine (MORPHINE) Allergy Unknown Vomiting Verified 02/03/25 11:44 milk AdvReac Nausea Verified 02/03/25 11:44 Milk Containing Products AdvReac Nausea Verified 02/03/25 11:44 (Dairy) Ortho Exam (Inpt) Vital signs and Labs for Last 24 Hours: Temp Pulse Resp BP Pulse Ox O2 Del Method O2 Flow Rate 98.1 F 116 H 18 109/70 L 97 Room Air 2 02/04/25 08:00 02/04/25 08:00 02/04/25 08:00 02/04/25 08:00 02/04/25 08:00 02/04/25 08:53 02/04/25 03:00 Laboratory Results - last 24 hr 02/01/25 08:15: Serum HCG, Qual Negative 02/03/25 15:06: Urine Color Yellow, Urine Appearance Clear, Urine pH 7.5, Ur Specific Guys 1.020, Urine Protein Negative, Urine Glucose (UA) Negative, Urine Ketones Negative, Urine Blood Negative, Urine Nitrate Negative, Urine Bilirubin Negative, Urine Urobilinogen 0.2, Ur Leukocyte Esterase Negative, Urine RBC Occasional, Urine WBC Occasional, Ur Squamous Epith Cells 3-5 02/03/25 20:22: WBC 14.9 H D, RBC 3.29 L, Hgb 10.2 L, Hct 30.6 L, MCV 93.0, MCH 31.0, MCHC 33.3, RDW 12.0, Plt Count 286, MPV 9.2, Neut % (Auto) 90.2 H, Lymph % (Auto) 6.8 L, [place] % (Auto) 2.0, Eos % (Auto) 0.2, Baso % (Auto) 0.4, Neut # (Auto) 13.5 H, Lymph # (Auto) 1.0, [place] # (Auto) 0.3, Eos # (Auto) 0.0, Baso # (Auto) 0.1, Total Counted 100, Neutrophils % (Manual) 91 H, Lymphocytes % (Manual) 9 L, Platelet Estimate Normal, Stomatocytes 1+, Sodium 137, Potassium 4.0, Chloride 103, Carbon Dioxide 27, Anion Gap 11.0, BUN 15 D, Creatinine 0.80, Estimated Creat Clear 110, Estimated GFR 77, Est GFR ( Amer) 93, G lucose 127 H, Calcium 9.5 02/04/25 05:30: WBC 7.8 D, RBC 3.04 L, Hgb 9.0 L D, Hct 28.0 L, MCV 92.1, MCH 29.6, MCHC 32.1, RDW 12.0, Plt Count 254, MPV 9.8, Neut % (Auto) 62.8, Lymph % (Auto) 27.0, [place] % (Auto) 9.5 H, Eos % (Auto) 0.0 L, Baso % (Auto) 0.4, Neut # (Auto) 4.9, Lymph # (Auto) 2.1, [place] # (Auto) 0.7, Eos # (Auto) 0.0, Baso # (Auto) 0.0, Sodium 141, Potassium 3.9, Chloride 105, Carbon Dioxide 29, Anion Gap 10.9, BUN 13, Creatinine 0.80, Estimated Creat Clear 112, Estimated GFR 77, Est GFR ( Amer) 93, Glucose 85 D, Calcium 8.7 I & O for Labs for Last 24 Hours: Intake & Output 02/01/25 02/02/25 02/03/25 02/04/25 23:59 23:59 23:59 23:59 Intake Total 1600 / 2140 2140 / 2140 Output Total 1100 / 1100 Balance 1600 / 2140 1040 / 1040 Weight 80.286 kg 80.282 kg 81.647 kg Additional findings:: R hip: Dressing CDI. Thigh and calf SNT. Grossly NVID with SILT 1st DWS/PA, + motor EHL/FHL/GS/TA. +2 RP. L hip: Dressing CDI. Thigh and calf SNT. Grossly NVID with SILT 1st DWS/PA, + motor EHL/FHL/GS/TA. +2 RP. Results Labs 02/04/25 05:30 02/04/25 05:30 Labs: Abnormal lab results 02/03/25 02/04/25 Range/Units 20:22 05:30 WBC 14.9 H D (4.8-10.8) K/mm3 RBC 3.29 L 3.04 L (4.20-5.40) M/mm3 Hgb 10.2 L 9.0 L D (12.2-16.2) g/dL Hct 30.6 L 28.0 L (37.0-47.0) % Neut % (Auto) 90.2 H (37.0-80.0) % Lymph % (Auto) 6.8 L (10-50) % [place] % (Auto) 9.5 H (1.7-9.3) % Eos % (Auto) 0.0 L (0.1-12.0) % Neut # (Auto) 13.5 H (1.8-7.8) K/mm3 Neutrophils % (Manual) 91 H (42-76) % Lymphocytes % (Manual) 9 L (10-50) % Glucose 127 H (74-100) mg/dl H & H 02/03/25 02/04/25 Range/Units 20:22 05:30 Hgb 10.2 L 9.0 L D (12.2-16.2) g/dL Hct 30.6 L 28.0 L (37.0-47.0) % All other labs normal. Assessment and Plan *Assessment and plan (1) Nondisplaced fracture of neck of left femur: Status: Acute Category: Medical Code(s): S72.002A - Fracture of unspecified part of neck of left femur, initial encounter for closed fracture (2) Intertrochanteric fracture of right hip: Status: Acute Qualifiers: Encounter type: initial encounter Fracture type: closed Fracture alignment: nondisplaced Qualified Code(s): S72.144A - Nondisplaced intertrochanteric fracture of right femur, initial encounter for closed fracture Category: Medical Code(s): S72.141A - Displaced intertrochanteric fracture of right femur, initial encounter for closed fracture Plan PT/OT: WBAT to LLE, WBAT to RLE, devices PRN ambulation DVT ppx: ASA 81 BID x 28 days, SCDs BLE Ice and elevation PRN swelling/pain Completed Ancef 1g q8h x2 post-op ppx Encourage IS. Hgb/Hct: 9.0/28.0, monitor with daily labs. Pain control PRN
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
[2025-02-04] MEDS: LACTATED RINGERS 1000ML 1,000 ML 50 ML IV (12:22)
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
--- NOTE | 2025-02-04 17:08 | PC.NURSE ---
A&OX4. TOLERATING RA WELL. BILATERAL HIP DRESSINGS NOTED, CDI. PATIENT HAS COMPLAINED OF PAIN T/O SHIFT, TX WITH MEDICATION PER MAR. EFFECTIVENESS IS NOTED. PT HAS BEEN UP TO CHAIR MAJORITY OF SHIFT AND SEEMS TO BE FAIRLY COMFORTABLE THERE. GOT UP TWICE WITH PT, X2 ASSIST WITH WALKER, TOLERATED FAIRLY WELL. F/C REMOVED THIS SHIFT. PT TEARFUL AT TIMES, BUT HAS BEEN IN GOOD SPIRITS THROUGHOUT MOST OF THE DAY. VISITORS HAVE BEEN IN AND OUT. VSS.
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
[2025-02-05] VITALS: BP 122/69; PULSE 100; RESP 18; TEMP 37; O2SAT 98
[2025-02-05] MEDS: HYDROCODONE/APAP 5/325 MG TABLET 2 TAB PO ×3 (02:25→12:07)
[2025-02-05 04:00] VITALS: BP 117/63; PULSE 99; RESP 16; TEMP 36.8; O2SAT 92; BMI 31.2
--- NOTE | 2025-02-05 04:46 | PC.NURSE ---
Patient is alert and oriented x4. She was observed to have both wakeful periods and resting periods (eyes closed, respirations even/unlabored on room air) throughout the night. Patient was up to the chair yesterday evening and was assisted back into bed at bedtime. She has had complaints of bilateral hip/leg pain this shift. Unity tablets and intravenous Dilautid (for break-through pain) given per MAR for persistent pain control. Bilateral hip repair dressings remain clean, dry, and intact. Patient has been ambulating in her room with assistance x1 - x2 from staff, in an addition to a walker, to help steady herself. Her gait has been quite unsteady, and the patient is shaky at times; encouragement and praise has been given from staff for her ongoing recovery and improving ambulation. Trace swelling was noted in her bilateral lower extremities. The bedside commode has been utilized for elimination needs (urine output measured/documented accordingly); however, the patient has not expressed the urge to defecate this shift. Auscultation of her heart, bowels, and lungs were within normal findings. Heart rate slightly tachycardic; other vital signs stable. Scheduled medications were administered as appropriately per MAR. Lactated Ringers continue to infuse at 50 mL/hr. At this time, the patient is resting in bed without any further complaints. No acute changes noted thus far. Call light within reach.
[2025-02-05] MEDS: HYDROMORPHONE 2MG/ML SYRINGE 0.5 MG IV ×3 (05:30→09:46)
[2025-02-05 06:26] LABS: Basophils % 0.6 % (0.1-2.0); Eosinophils # 0.1 K/mm3 (0.0-0.4); Eosinophils % 1.4 % (0.1-12.0); Hematocrit 26.4 % (37.0-47.0); Hemoglobin 8.9 g/dL (12.2-16.2); Lymphocytes % 29.3 % (10-50); Mean Corpuscular HGB Conc 33.7 g/dL (31.8-35.4); Mean Corpuscular Hemoglobin 30.9 pg (27.0-31.2); Mean Corpuscular Volume 91.7 fl (81-99); Mean Platelet Volume 9.6 fl (7.4-10.4); Monocytes # 0.6 K/mm3 (0.1-1.0); Monocytes % 9.2 % (1.7-9.3); Neutrophils # 4.1 K/mm3 (1.8-7.8); Neutrophils % 59.2 % (37.0-80.0); Platelet Count 233 K/mm3 (142-424); Red Blood Count 2.88 M/mm3 (4.20-5.40); Red Cell Distribution Width 12.1 % (11.5-17.5)
[2025-02-05 06:54] LABS: Anion Gap 8.4 mEq/L (5-15); Blood Urea Nitrogen 9 mg/dl (7-17); Calcium 8.8 mg/dl (8.4-10.2); Carbon Dioxide 29 mmol/L (22.0-30.0); Chloride 104 mmol/L (98-107); Creatinine Clearance Estimated 126 mL/min (50-200); Estimated Glomerular Filt Rate 90 ml/min (>60); GFR (African American) 109 ML/MIN (>60); Glucose 88 mg/dl (74-100); Potassium 3.4 mmoL/L (3.5-5.1); Sodium 138 mmol/L (136-145)
[2025-02-05 08:00] VITALS: BP 113/54; PULSE 103; RESP 16; TEMP 36.9; O2SAT 96
[2025-02-05] MEDS: ASPIRIN 81MG CHEWABLE TABLET 81 MG PO (08:29)
[2025-02-05] MEDS: LACTATED RINGERS 1000ML 1,000 ML 50 ML IV (08:30)
[2025-02-05] MEDS: POLYETHYLENE GLYCOL 3350 238GM POWDER 17 GM PO (09:45)
[2025-02-05] MEDS: lamoTRIgine 100MG TABLET 200 MG PO (09:46)
[2025-02-05] MEDS: LEVOTHYROXINE 112MCG (0.112MG) TAB 112 MCG PO (09:46)
[2025-02-05] MEDS: CITALOPRAM 10MG TABLET 10 MG PO (09:46)
--- NOTE | 2025-02-05 10:18 | CARE MANAGER ---
Patient will require a rolling walker for safe ambulation r/t bilateral femoral fracture repair, in which a cane would not provide enough support and stability. She will also require a BSC due to difficulty ambulating to nearest bathroom.
--- NOTE | 2025-02-05 10:35 | P.PN_ITS ---
Subjective *Date: 02/05/25 *Time: 10:35 Interval history: Patient states her pain is well-controlled, has been working with PT and ambulating adequately. Denies any headache, dizziness, chest pain, shortness of breath, nausea, vomiting, calf pain, paresthesias. Ortho Exam (Inpt) Vital signs and Labs for Last 24 Hours: Temp Pulse Resp BP Pulse Ox O2 Del Method O2 Flow Rate 98.5 F 103 H 16 113/54 L 96 Room Air 2 02/05/25 08:00 02/05/25 08:00 02/05/25 08:00 02/05/25 08:00 02/05/25 08:00 02/05/25 09:00 02/04/25 03:00 Laboratory Results - last 24 hr 02/05/25 05:26: WBC 7.0, RBC 2.88 L, Hgb 8.9 L, Hct 26.4 L, MCV 91.7, MCH 30.9, MCHC 33.7, RDW 12.1, Plt Count 233, MPV 9.6, Neut % (Auto) 59.2, Lymph % (Auto) 29.3, [place] % (Auto) 9.2, Eos % (Auto) 1.4, Baso % (Auto) 0.6, Neut # (Auto) 4.1, Lymph # (Auto) 2.0, [place] # (Auto) 0.6, Eos # (Auto) 0.1, Baso # (Auto) 0.0, Sodium 138, Potassium 3.4 L, Chloride 104, Carbon Dioxide 29, Anion Gap 8.4, BUN 9 D, Creatinine 0.70, Estimated Creat Clear 126, Estimated GFR 90, Est GFR ( Amer) 109, Glucose 88, Calcium 8.8 I & O for Labs for Last 24 Hours: Intake & Output 02/02/25 02/03/25 02/04/25 02/05/25 23:59 23:59 23:59 23:59 Intake Total 1600 / 2140 2618 / 4151 1533 / 1533 Output Total 2800 / 2800 900 / 900 Balance 1600 / 2140 -182 / 1351 633 / 633 Weight 80.282 kg 81.647 kg 80.087 kg Additional findings:: R hip: Dressing changed with DSDs. No erythema, active drainage, signs of infection. Edges will aproximated with cristal. Thigh and calf SNT. Grossly NVID with SILT 1st DWS/PA, + motor EHL/FHL/GS/TA. +2 RP. L hip: Dressing changed with DSDs. No erythema, active drainage, signs of infection. Edges will aproximated with cristal. Thigh and calf SNT. Grossly NVID with SILT 1st DWS/PA, + motor EHL/FHL/GS/TA. +2 RP. Assessment and Plan *Assessment and plan (1) Nondisplaced fracture of neck of left femur: Status: Acute Category: Medical Code(s): S72.002A - Fracture of unspecified part of neck of left femur, initial encounter for closed fracture (2) Intertrochanteric fracture of right hip: Status: Acute Qualifiers: Encounter type: initial encounter Fracture type: closed Fracture alignment: nondisplaced Qualified Code(s): S72.144A - Nondisplaced intertrochanteric fracture of right femur, initial encounter for closed fracture Category: Medical Code(s): S72.141A - Displaced intertrochanteric fracture of right femur, initial encounter for closed fracture Plan PT/OT: WBAT to LLE, WBAT to RLE, devices PRN ambulation DVT ppx: ASA 81 BID x 28 days, SCDs BLE Ice and elevation PRN swelling/pain Hgb/Hct: 8.9/26.4, stable. Pain control PRN Discharge planning to home with outpatient PT, likely today. Follow up POD#10-14 (02/15-) for staple removal in clinic.
[2025-02-05 12:00] VITALS: BP 117/72; PULSE 97; RESP 18; TEMP 36.9; O2SAT 97
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
--- NOTE | 2025-02-09 11:14 | SW/DCPLANNER ---
Phoned patient x2. Patient did not answer left messages with call back number and name. Christine Hu
--- NOTE | 2025-02-25 12:56 | SW/DCPLANNER ---
Phoned patient to let her know that her tsh was elevated and see if she was still taking her Levothroxine. Left a message for patient to follow up with her PCP Christine Hu
== END 2025-02-05 16:38 | disposition home or self-care (01) | DRG 480 ==
LOC: 2ND 18:20
PROVIDERS: Nurse Practitioner Family; Orthopaedic Surgery; Admitting Provider Student in an Organized Health Care Education/Training Program; PCP Nurse Practitioner Family; Visit Provider Student in an Organized Health Care Education/Training Program
PROC: 0QS636Z Reposition Right Upper Femur with Intramedullary Internal Fixation Device, Percutaneous Approach (ICD-10-PCS; CPT 27245; principal; 2025-02-03 12:45)
DX: S72.141A Displaced intertrochanteric fracture of right femur, initial encounter for closed fracture (principal); S72.002A Fracture of unspecified part of neck of left femur, initial encounter for closed fracture; Y92.019 Unspecified place in single-family (private) house as the place of occurrence of the external cause; X00.0XXA Exposure to flames in uncontrolled fire in building or structure, initial encounter; W01.0XXA Fall on same level from slipping, tripping and stumbling without subsequent striking against object, initial encounter; F39 Unspecified mood [affective] disorder; F41.8 Other specified anxiety disorders; F31.9 Bipolar disorder, unspecified; Z85.850 Personal history of malignant neoplasm of thyroid; G43.909 Migraine, unspecified, not intractable, without status migrainosus; F42.9 Obsessive-compulsive disorder, unspecified; Z79.899 Other long term (current) drug therapy
CPT/HCPCS: 36415; 73502; 76000; 80048; 81001; 84443; 84703; 85007; 85025; 96374; 97116; 97163; 97165; 97530; C1713; C1769; C1776; J0690; J1100; J1171; J2250; J2405; J3010; J7120

== ENCOUNTER 2025-02-22 08:00 | Outpatient (RCR) | payer MEDICAID, SELFPAY ==
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
== END 2025-02-22 23:59 | disposition home or self-care (01) ==
LOC: PT 08:00
PROVIDERS: PCP Nurse Practitioner Family; Visit Provider Orthopaedic Surgery
DX: S72.144A Nondisplaced intertrochanteric fracture of right femur, initial encounter for closed fracture (principal); S72.002A Fracture of unspecified part of neck of left femur, initial encounter for closed fracture
CPT/HCPCS: 97110; 97163

== ENCOUNTER 2025-02-23 11:25 | Outpatient (CLI) | payer MEDICAID, SELFPAY ==
--- NOTE | 2025-02-23 11:28 | XR_ITS ---
FINAL REPORT CLINICAL HISTORY: lt hip pain COMPARISON: 02/03/2025 FINDINGS: LEFT HIP 2 views of the left hip are obtained. There is no acute fracture or dislocation. There are [address] There is no evidence of AVN or fracture line. Joint is unremarkable. There is no acute soft tissue abnormality. IMPRESSION: ORIF changes without acute bony abnormality. Reviewed, Interpreted and Dictated by Sandra Galeano MD Transcribed by Bernadine Du Authenticated and [facility]
--- NOTE | 2025-02-23 11:28 | XR_ITS ---
FINAL REPORT CLINICAL HISTORY: rt hip pain FINDINGS: RIGHT HIP Two views of the right hip demonstrate dynamic compression screw and hermann in place. There is a minimally displaced intertrochanteric right hip fracture. Hardware is unremarkable. Soft tissues are normal. IMPRESSION: ORIF changes without acute bony abnormality. Reviewed, Interpreted and Dictated by Sandra Galeano MD Transcribed by Bernadine Du Authenticated and [facility]
== END 2025-02-23 23:59 | disposition home or self-care (01) ==
LOC: RAD 11:26
PROVIDERS: PCP Nurse Practitioner Family; Visit Provider Orthopaedic Surgery
DX: M25.551 Pain in right hip (principal); M25.552 Pain in left hip; S72.002A Fracture of unspecified part of neck of left femur, initial encounter for closed fracture; S72.144A Nondisplaced intertrochanteric fracture of right femur, initial encounter for closed fracture
CPT/HCPCS: 73502

== ENCOUNTER 2025-03-30 10:08 | Outpatient (CLI) | payer MEDICAID, SELFPAY ==
--- NOTE | 2025-03-30 10:19 | XR_ITS ---
FINAL REPORT CLINICAL HISTORY: Bilateral Hip Fx COMPARISON: None FINDINGS: SINGLE VIEW PELVIS: A single view of the pelvis was obtained. ORIF of the bilateral hips has been performed. The hardware appears intact. There is no acute fracture or dislocation. Mild bilateral degenerative change is present, greater on the right than on the left. Soft tissues are unremarkable. IMPRESSION: Prior ORIF of the bilateral hips, with intact hardware. Mild degenerative change. Reviewed, Interpreted and Dictated by Melissa Lu MD Transcribed by Dang Mallory Authenticated and [facility]
== END 2025-03-30 23:59 | disposition home or self-care (01) ==
LOC: RAD 10:09
PROVIDERS: PCP Nurse Practitioner Family; Visit Provider Orthopaedic Surgery
DX: M25.551 Pain in right hip (principal); M25.552 Pain in left hip
CPT/HCPCS: 72170

== ENCOUNTER 2025-09-01 13:32 | Outpatient (CLI) | payer MEDICAID, SELFPAY ==
[2025-09-01 13:35] LABS: Microscopic, Urine URINE MICROSCOPIC (MICROSCOPIC)
[2025-09-01 14:58] LABS: Hematocrit 34.3 % (37.0-47.0); Hemoglobin 11.2 g/dL (12.2-16.2); Immature Granulocytes % 0.2 %; Mean Corpuscular HGB Conc 32.7 g/dL (31.8-35.4); Mean Corpuscular Hemoglobin 29.4 pg (27.0-31.2); Mean Corpuscular Volume 90.0 fl (81-99); Nucleated Red Blood Cells % 0 %; Platelet Count 292 K/mm3 (142-424); Red Blood Count 3.81 M/mm3 (4.20-5.40); Red Cell Distribution Width-SD 42.1 fL; White Blood Count 6.2 K/mm3 (4.8-10.8)
[2025-09-01 15:49] LABS: Bilirubin,Urine Negative (Negative); Color,Urine YELLOW (Yellow); Glucose,Urine (UA) Negative (Negative); Ketones,Urine TRACE (Negative); Leukocyte Esterase,Urine Negative (Negative); PH,Urine 5.5 (5.0-8.5); Protein,Urine TRACE (Negative); Specific Gravity, Urine 1.025 (1.005-1.030); Urobilinogen,Urine 1.0 EU/dl (0.2)
[2025-09-01 16:34] LABS: Anion Gap 13.3 mEq/L (5-15); Aspartate Amino Transferase 31 U/L (14-36); Bilirubin,Total 0.6 mg/dl (0.2-1.3); Blood Urea Nitrogen 21 mg/dl (7-17); Calcium 9.3 mg/dl (8.4-10.2); Carbon Dioxide 29 mmol/L (22.0-30.0); Chloride 103 mmol/L (98-107); Creatinine,Serum 1.00 mg/dl (0.52-1.04); Estimated Glomerular Filt Rate 59 ml/min (>60); GFR (African American) 72 ML/MIN (>60); Glucose 56 mg/dl (74-100); Potassium 4.3 mmoL/L (3.5-5.1); Sodium 141 mmol/L (136-145)
[2025-09-01 16:35] LABS: Alanine Aminotransferase 22 U/L (12-78); Albumin Level 4.2 g/dl (3.5-5.0); Albumin/Globulin Ratio 1.8 (1.1-1.8); Alkaline Phosphatase 153 U/L (38-126); Globulin 2.4 g/dL (1.3-3.2); Total Protein,Serum 6.6 g/dl (6.3-8.2)
[2025-09-01 21:14] LABS: Bacteria,Urine 2+ /lpf; Calcium Oxalate Crystals,Urine 3+ /lpf
== END 2025-09-01 23:59 | disposition home or self-care (01) ==
LOC: LAB 13:32
PROVIDERS: PCP Nurse Practitioner Family; Visit Provider Surgery
DX: K61.0 Anal abscess (principal); R19.7 Diarrhea, unspecified
CPT/HCPCS: 36415; 80053; 81001; 85025; 87086

== ENCOUNTER 2025-09-06 08:39 | Outpatient (CLI) | payer MEDICAID, SELFPAY ==
[2025-09-06 08:43] LABS: Adenovirus F 40/41, stool Not Detected (NotDetected); Clostridium Difficile A/B, PCR Not Detected (NotDetected); Cyclospora Cayetanesis Not Detected (NotDetected); Plesimonas Shigalloides, PCR Not Detected (NotDetected); Salmonella, PCR Not Detected (NotDetected); Shiga-like toxin E coli Not Detected (NotDetected); Shigella Enterovasive E coli Not Detected (NotDetected); Vibrio, PCR Not Detected (NotDetected); Yersinia Entercolitica, PCR Not Detected (NotDetected)
--- OUTSIDE RECORDS SUMMARY | 2025-09-06 08:52 | XMS_ITS | Clinical Summary ---
Author Organization [facility] Address [address] [place] [address] Care Team Providers Care Parts Analyst Name Role Phone Pcp, No Primary Care Provider Unavailabl e Social History Tobacco Use Types Packs/Day Years Used Date Smoking Tobacco: Never Assessed Comments Unknown Sex and Gender Information Value Date Recorded Sex Assigned at Female 09/04/2023 1:57 PM EDT Legal Sex Female 1:51 PM EDT Gender Identity Female 09/04/2023 1:57 PM EDT Sexual Orientation Not on file Plan of Treatment Health Maintenance Due Date Last Done Comments [facility]-Depression Screening 1977 [facility]-/Child/Adol SDOH Screenings 1977 [facility]- SDOH Screenings 1995 [facility]-Adult SDOH Screenings 1995 [facility]-Hepatitis B Vaccines (1 of 3 - 19+ 3-dose series) 1996 [facility]-Pap Smear 1998 [facility]-Cervical Cancer Screening 2007 [facility]-HPV/Cotest 2007 CT Colonography 2022 Colonoscopy 2022 FIT-DNA 2022 FIT 2022 FOBT 2022 Sigmoidoscopy 2022 [facility]-Colorectal Cancer Screening 2022 HYF-[id number]-16 Vaccine (3 - season) 2025 07/28/2021, 07/07/2021 [facility]-Influenza Vaccine (#1) 2025 01/04/2020 [facility]-Zoster Vaccines (1 of 2) 2027 [facility]-DTaP,Tdap,and Td Vaccine s (2 - Td or Tdap) 03/05/2033 03/05/2023 HPV Vaccines Aged Out No longer eligi ble based on patient's age to complete this topic [facility]-HIB Vaccines Aged Out No longer e ligible based on patient's age to complete this topic [facility]-Hepatitis A Vaccines Aged Out No longer eligible based on patient's age to complete this topic [facility]-IPV Vaccines Aged Out No longer e ligible based on patient's age to complete this topic [facility]-Pneumococcal Vaccine: Pediatrics (0 to 5 Years) and At-Risk Patients (6 to 49 Years) Aged Out No longer eligible b ased on patient's age to complete this topic [facility]-Rotavirus Vaccines Aged Out No lo nger eligible based on patient's age to complete this topic Insurance [employer] Care Teams Parts Analyst Relationship Specialty Start Date End Date [address], [place] [address] PCP - General Family Medicine 10/25/23
--- OUTSIDE RECORDS SUMMARY | 2025-09-06 08:52 | XMS_ITS | Continuity of Care Document ---
Author Organization [facility] Address [address] [place] [address] Phone Care Team Providers Care Black Belt Name Role Phone Unavailable Primary Care Provider Unavailabl e Encounters Date Type Department Care Team Description 12/28/2024 12:59 PM EST - 12/28/2024 11:59 PM EST Hospital Encounter Mobile Mammography Other Location View online schedule for mobile van location [phone] Encounter for screening mammogram for malignant neoplasm of breast Discharge Disposition: Home or Self Care 07/26/2023 1:35 PM EDT - 07/26/2023 11:59 PM EDT Hospital Encounter [facility] [address] [place] [id number] Provider, Unknown Discharge Disposition: Home or Self Care Social History Smoking Status as of 09/06/2025 Tobacco Use Types Packs/Day Years Used Date Smoking Tobacco: Never Assessed Sex and Gender Information Value Date Recorded Sex Assigned at Not on file Legal Sex Female 9:37 AM EST Gender Identity Not on file Sexual Orientation Not on file Plan of Treatment Not on file Procedures Procedure Name Priority Date/Time Associated Diagnosis Comments MM OUTSIDE FILMS FOR COMPARISON Routine 12/29/2024 1:32 PM EST MM MAMMO DIGITAL PRATEEK SCREEN BILAT Routine 12/28/2024 1:09 PM EST Encounter for screening mammogram for malignant neoplasm of breast Results * MM OUTSIDE FILMS FOR COMPARISON (12/29/2024 1:32 PM EST) us Unknown Provider IMG MAMMOGRAPHY ORDERABLES Sylvie l Result PACS * MM MAMMO DIGITAL PRATEEK SCREEN BILAT (12/28/2024 1:09 PM EST) Anatomical Region Laterality Modality Breast Bilateral Mammography 12/28/2024 1:09 PM EST Impressions 12/30/2024 8:42 AM EST Negative (DIS-[id number]) RECOMMENDATION: Routine Screening Mammogram in 1 Year Bilateral No additional recommendation No additional laterality COMMENTS: Narrative 12/30/2024 8:42 AM EST EXAM: MM MAMMO DIGITAL PRATEEK SCREEN BILAT EXAM DATE: 12/28/2024 1:09 PM INDICATION: Z12.31-Encounter for screening mammogram for malignant neoplasm of [id number]-CM COMPARISON STUDIES: Compared with prior studies the most recent being Outside breast imaging facility dated 07/26/2023. TISSUE DENSITY: The breasts are heterogeneously dense, which may obscure small masses. FINDINGS: No mammographic evidence of malignancy. Procedure Note Zay Ahn DO - 12/30/2024 EXAM: MM MAMMO DIGITAL PRATEEK SCREEN BILAT EXAM DATE: 12/28/2024 1:09 PM INDICATION: Z12.31-Encounter for screening mammogram for malignantneoplasm of [id number]-[id number]-CM COMPARISON STUDIES: Compared with prior studies the most recent being Outside breast imaging facility dated 07/26/2023. TISSUE DENSITY: The breasts are heterogeneously dense, which may obscuresmall masses. FINDINGS: No mammographic evidence of malignancy. IMPRESSION: Negative ([id number]) RECOMMENDATION: Routine Screening Mammogram in 1 Year Bilateral No additional recommendation No additional laterality COMMENTS: Mellissa Hooks APRN IMG MAMMOGRAPHY ORDERABLES Fin al Result Visit Diagnoses Diagnosis Start Date Encounter for screening mammogram for malignant neoplasm of breast Other screening mammogram 12/28/2024
--- OUTSIDE RECORDS SUMMARY | 2025-09-06 08:52 | XMS_ITS | Encounter Summary ---
Author Organization Healthcare Address [address] 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) Social History Tobacco Use Types Packs/Day Years Used Date Smoking Tobacco: Never Assessed Comments Unknown Sex and Gender Information Value Date Recorded Sex Assigned at Female 09/04/2023 1:57 PM EDT Legal Sex Female 1:51 PM EDT Gender Identity Female 09/04/2023 1:57 PM EDT Sexual Orientation Not on file documented as of this encounter Plan of Treatment Not on file documented as of this encounter Visit Diagnoses Diagnosis Idiopathic hypersomnia with long sleep time- Primary documented in this encounter Care Teams High School Counselor Relationship Specialty Start Date End Date Pcp, Glenis [address] [place] [address] PCP - General Family Medicine 10/25/23 documented as of this encounter
== END 2025-09-06 23:59 | disposition home or self-care (01) ==
LOC: LAB 08:40
PROVIDERS: PCP Nurse Practitioner Family; Visit Provider Surgery
DX: K61.0 Anal abscess (principal); R19.7 Diarrhea, unspecified
CPT/HCPCS: 87506

== ENCOUNTER 2025-09-08 10:44 | Outpatient (CLI) | payer MEDICAID, SELFPAY ==
--- NOTE | 2025-09-08 10:45 | CT_ITS ---
FINAL REPORT TECHNIQUE: Thin section axial images are obtained through the abdomen and pelvis after intravenous contrast. Reconstruction images were obtained from the axial data. Exam was performed using dose reduction techniques. This study was performed with techniques to keep radiation doses as low as reasonably achievable (ALARA). Individualized dose reduction techniques using automated exposure control or adjustment of mA and/or kV according to the patient's size were employed. CLINICAL HISTORY: Anal abscess COMPARISON: None FINDINGS: LUNG BASES: Lung bases are clear. Heart size is normal. LIVER: Homogeneous. No focal lesion. GALLBLADDER/BILIARY SYSTEM: Gallbladder is present. No gallstones. No biliary dilatation. SPLEEN: Unremarkable. PANCREAS: Unremarkable. ADRENALS: Unremarkable. KIDNEYS/URETERS/BLADDER: No hydronephrosis, renal mass, or renal stone. Unremarkable urinary bladder. GI TRACT: No small bowel obstruction or dilatation. Normal appendix. A large amount of stool is present in the colon. No perianal fluid collection is identified. There is no inflammatory change in either ischioanal fossa. PELVIC ORGANS: Unremarkable for age. LYMPH NODES/RETROPERITONEUM/MESENTERY: Small perirectal lymph nodes are present, nonspecific but may be reactive. No abdominal aortic aneurysm. ABDOMINAL WALL: A very small umbilical hernia is present, containing fat. FREE FLUID: No ascites. BONES: No acute osseous abnormality. IMPRESSION: 1. No perianal abscess or perineal inflammatory processes identified. Reviewed, Interpreted and Dictated by Melissa Lu MD Transcribed by Dang Mallory Authenticated and [facility]
--- OUTSIDE RECORDS SUMMARY | 2025-09-08 10:49 | XMS_ITS | Clinical Summary ---
Author Organization [facility] Address [address] [place] [address] Care Team Providers Care Systems Software Engineer Name Role Phone Pcp, No Primary Care [...] 2022 Sigmoidoscopy 2022 UKY-Colorectal Cancer Screening 2022 [id number] Vaccine (3 - season) 2025 07/28/2021, 07/07/2021 [...] this topic Insurance [employer] Care Teams Systems Software Engineer Relationship Specialty Start Date End Date Kapil, [place] [address] PCP - General Family Medicine 10/25/23
--- OUTSIDE RECORDS SUMMARY | 2025-09-08 10:49 | XMS_ITS | Encounter Summary ---
Author Organization Healthcare Address [address] [place] [address] Care Team Providers Care Carrot Harvester Name Role Phone Pcp, Glenis Primary Care Provider Unavailabl e Encounter Details Date Type Department Care Team ([facility] st Contact Info) Description 09/04/2023 Community [facility] Community Practice [address] [place] [address] Mellissa Hooks, ENGINEERING TECHNOLOGIST [address] [place] [address] Idiopathic hypersomnia with long sleep time (Primary [...] Primary documented in this encounter Care Teams Carrot Harvester Relationship Specialty Start Date End Date Pcp, Glenis [address] [place] [address] PCP - General Family Medicine 10/25/23 documented as of this encounter
--- OUTSIDE RECORDS SUMMARY | 2025-09-08 10:49 | XMS_ITS | Continuity of Care Document ---
Author Organization [facility] Address [address] [place] [address] Phone Care Team Providers Care Wireline Operator Name Role Phone Unavailable Primary Care Provider Unavailabl e Encounters Date Type Department Care Team Description 12/28/2024 12:59 PM EST - 12/28/2024 11:59 PM EST Hospital Encounter Mobile Mammography Other Location View online schedule for mobile van location [phone] Encounter for screening mammogram for malignant neoplasm of breast Discharge Disposition: Home or Self Care 07/26/2023 1:35 PM EDT - 07/26/2023 11:59 PM EDT Hospital Encounter [facility] [address] [place] [id number] Provider, Unknown Discharge Disposition: Home or Self Care Social History Smoking Status as of 09/08/2025 Tobacco Use Types Packs/Day Years Used Date [...] EST Impressions 12/30/2024 8:42 AM EST Negative ([id number]) RECOMMENDATION: Routine Screening Mammogram in 1 Year Bilateral No additional recommendation No additional laterality COMMENTS: Narrative 12/30/2024 8:42 AM EST EXAM: MM MAMMO DIGITAL PRATEEK SCREEN BILAT EXAM DATE: 12/28/2024 1:09 PM INDICATION: Z12.31-Encounter for screening mammogram for malignant neoplasm of [id number]-CM COMPARISON STUDIES: Compared with prior studies the most recent being Outside breast imaging facility dated 07/26/2023. TISSUE DENSITY: The breasts are heterogeneously dense, which may obscure small masses. FINDINGS: No mammographic evidence of malignancy. Procedure Note Zay Ahn DO - 12/30/2024 EXAM: MM MAMMO DIGITAL PRATEEK SCREEN BILAT EXAM DATE: 12/28/2024 1:09 PM INDICATION: Z12.31-Encounter for screening mammogram for malignantneoplasm of [id number]-[id number]-CM COMPARISON STUDIES: Compared with prior studies the most recent being Outside breast imaging facility dated 07/26/2023. TISSUE DENSITY: The breasts are heterogeneously dense, which may obscuresmall masses. FINDINGS: No mammographic evidence of malignancy. IMPRESSION: Negative (VAZ-Incwzegh-3) RECOMMENDATION: Routine Screening Mammogram in 1 Year Bilateral No additional recommendation No additional laterality COMMENTS: Mellissa Hooks APRN IMG MAMMOGRAPHY ORDERABLES Fin al Result Visit Diagnoses Diagnosis Start Date Encounter for screening mammogram for malignant neoplasm of breast Other screening mammogram 12/28/2024
[2025-09-08] MEDS: IOPAMIDOL-370 (76%);100ML BOTTLE 75 ML IV (11:18)
[2025-09-08] MEDS: BARIUM SULFATE(READI-CAT2);450ML BOTTLE 450 ML PO (11:18)
[2025-09-08] MEDS: SODIUM CHLORIDE 0.9% 10ML SYR (RAD ONLY) 10 ML IV (11:18)
== END 2025-09-08 23:59 | disposition home or self-care (01) ==
LOC: RAD 10:44
PROVIDERS: PCP Nurse Practitioner Family; Visit Provider Surgery
DX: K61.0 Anal abscess (principal)
CPT/HCPCS: 74177; Q9967

== ENCOUNTER 2025-10-12 08:28 | Day surgery (SDC) | payer MEDICAID, SELFPAY ==
[2025-10-04 11:07] VITALS: BMI 30.2
[2025-10-08 14:05] VITALS: BMI 29.9
[2025-10-12 08:50] VITALS: BP 134/83; PULSE 95; RESP 18; TEMP 36.6; O2SAT 98
--- NOTE | 2025-10-12 09:05 | P.PNANES_ITS ---
[facility] Disclaimer: The information contained in this section may have been updated after the patient was seen, as this information can be updated by other users. Medical History Substance use disorder Hip pain, bilateral Acute pain of right hip Left thigh pain Anal abscess Bursitis of left knee Vaginitis Breast abscess Vasovagal episode CAP (community acquired pneumonia) History of thyroid cancer History of hyperthyroidism OCD (obsessive compulsive disorder) Migraine Depression Anxiety Bipolar 1 disorder Surgical History History of D&C H/O tubal ligation H/O thyroidectomy Family History Other No significant family history Social History Smoking Status: Never smoker alcohol intake: never substance use type: denies use current occupational status: unemployed Travel in the last 8 weeks?: None Have you lived/traveled outside US in past 30 days?: No Contact w/someone who lives/traveled outside US past 30 days?: No Exposure to someone with infectious disease in past 14 days?: No Do you have a fever (greater than 100.4 F or 38 C)?: No Have you tested positive for COVID-19?: No Exposed to someone with COVID-19 in past 14 days?: No Do you have a sore throat?: No Do you have a cough?: No Do you have any weakness?: No Are you experiencing any nausea/vomitting?: No Do you have any diarrhea?: No Are you experiencing any unusual bleeding?: No Do you have any muscle aches/pain?: No Do you have any abdominal pain?: No Are you experiencing loss of taste or smell?: No [facility] Anesthesia Checklist Patient Identification Patient Identification: Arm Band and Verbal (Name & ) Structural Data Admitted From: Home Planned Operative Procedure/s: colonoscopy Consent for Planned Operative Procedure(s) Verified: Yes Verified Documents: Surgical Consent NPO Status Verified Time NPO: 00:00 Additional verifications Anesthesia Reactions: No Hx Blood Transfusions: No Blood Transfusion Reaction: No Airway Assessment C-Spine Mobility Assessed: Yes TMJ Mobility Assessed: Yes Dentition: Dentures-good fit Neurological Assessment Level of Consciousness: Awake, Alert and Appropriate Hx Seizures: Yes Numbness or tingling in extremities: No Anesthesia Plan Anesthesia Risk discussed: Yes Anesthesia Plan: Verified ASA Class: II Anesthesia Type: MAC
--- NOTE | 2025-10-12 09:05 | EXP.GEN.HP ---
HPI HPI HPI: Patient presents for colonoscopy. Most recent office evaluation dated September 22, 2025 noted. HPI forwarded below. Forwarded from office visit dated September 22, 2025: The patient returns for follow-up status post CT scan and labs. CT scan of abdomen/pelvis dated September 08, 2025 reviewed. No perianal abscess or perineal inflammatory process noted. CBC dated September 01, 2025 reviewed. Hemoglobin 11.2. White blood cell count normal. No left shift. CMP dated September 01, 2025 reviewed. Alk phos 153. Otherwise, LFTs normal. Creatinine and potassium normal. Diarrhea panel reviewed. Results negative. Urinalysis reviewed. No significant abnormality noted. --- (1) Anal discharge: Code(s): R19.8 - Other specified symptoms and signs involving the digestive system and abdomen Status: Acute Problem Comment: Etiology somewhat equivocal Plan: No significant abnormality to attribute to symptomatology per CT scan or diarrhea panel. No evidence of infectious process noted. White blood cell count normal. Colonoscopy scheduled [facility] Disclaimer: The information contained in this section may have been updated after the patient was seen, as this information can be updated by other users. Medical History Substance use disorder Hip pain, bilateral Acute pain of right hip Left thigh pain Anal abscess Bursitis of left knee Vaginitis Breast abscess Vasovagal episode CAP (community acquired pneumonia) History of thyroid cancer History of hyperthyroidism OCD (obsessive compulsive disorder) Migraine Depression Anxiety Bipolar 1 disorder Surgical History History of D&C H/O tubal ligation H/O thyroidectomy Family History Other No significant family history Social History Smoking Status: Never smoker alcohol intake: never substance use type: denies use current occupational status: unemployed Travel in the last 8 weeks?: None Have you lived/traveled outside US in past 30 days?: No Contact w/someone who lives/traveled outside US past 30 days?: No Exposure to someone with infectious disease in past 14 days?: No Do you have a fever (greater than 100.4 F or 38 C)?: No Have you tested positive for COVID-19?: No Exposed to someone with COVID-19 in past 14 days?: No Do you have a sore throat?: No Do you have a cough?: No Do you have any weakness?: No Are you experiencing any nausea/vomitting?: No Do you have any diarrhea?: No Are you experiencing any unusual bleeding?: No Do you have any muscle aches/pain?: No Do you have any abdominal pain?: No Are you experiencing loss of taste or smell?: No Other Medical History Have you received the Flu Vaccine for this season: No Have you received the Pneumonia Vaccine: No Review of Systems Review of Systems Review of systems:: pertinent systems reviewed and negative unless documented below *Gastrointestinal Gastrointestinal: Reports as per [facility] Meds Home Medications and Allergies Home Medications ?Medication ?Instructions ?Recorded ?Confirmed ?Type levothyroxine 112 mcg tablet 112 mcg PO DAILY 02/14/23 09/29/25 History cetirizine 10 mg tablet 10 mg PO DAILY 12/29/24 09/22/25 History famotidine 40 mg tablet 40 mg PO DAILYP PRN Heartburn 12/29/24 09/29/25 History polyethylene glycol 3350 17 17 g PO DAILY 12/29/24 09/29/25 History gram/dose oral powder (ClearLax) buspirone 10 mg tablet 10 mg PO TID #90 tabs 03/03/25 09/29/25 Rx cariprazine 6 mg capsule (Vraylar) 6 mg PO DAILY #30 caps 03/03/25 09/29/25 Rx hydroxyzine pamoate 25 mg capsule 25 mg PO TID PRN Anxiety #90 caps 03/03/25 09/29/25 Rx trazodone 50 mg tablet 50 mg PO DAILY #30 tabs 03/03/25 09/29/25 Rx meloxicam 15 mg tablet 15 mg PO DAILY #30 tabs 06/28/25 09/29/25 Rx cyclobenzaprine 10 mg tablet 10 mg PO TID PRN muscle spasm #60 07/29/25 09/29/25 Rx tabs diclofenac potassium 50 mg tablet 50 mg PO TID pain #90 tabs 07/29/25 09/29/25 Rx diclofenac sodium 1 % topical gel 2 g topical QID #100 grams 09/16/25 09/29/25 Rx (Voltaren Arthritis Pain) buprenorphine 8 mg-naloxone 2 mg 1 ea sublingual DAILY 09/22/25 09/29/25 History sublingual film (Suboxone) lamotrigine 150 mg tablet 150 mg PO DAILY 09/22/25 09/29/25 History prazosin 2 mg capsule 1 mg PO HS 09/22/25 09/29/25 History guanfacine 3 mg tablet,extended 3 mg PO DAILY 09/29/25 09/29/25 History release 24 hr New Prescriptions to Start Prescriptions: Allergies Allergy/AdvReac Type Severity Reaction Status Date / Time latex (LATEX) Allergy Unknown Unknown Verified 10/08/25 14:01 allergy reaction morphine (MORPHINE) Allergy Unknown Vomiting Verified 10/08/25 14:01 Exam Data for Last 24 hours Vital signs and Labs for Last 24 Hours: Temp Pulse Resp BP Pulse Ox O2 Del Method 97.9 F 95 H 18 134/83 98 Room Air 10/12/25 08:50 10/12/25 08:50 10/12/25 08:50 10/12/25 08:50 10/12/25 08:50 10/12/25 08:50 I & O for Last 24 hours: Intake & Output 10/09/25 10/10/25 10/11/25 10/12/25 11:59 11:59 11:59 11:59 Weight 169 lb Constitutional Constitutional: no acute distress *Routine HEENT Exam Head: Present normocephalic Eye: Present EOMI ENT: Present mucous membranes moist *Routine Neck Exam Neck: Present full ROM *Routine Respiratory Exam Respiratory: Absent respiratory distress *Routine Cardiovascular Exam Cardiovascular: Absent tachycardia *Routine Abdominal Exam Abdominal: Present soft *Routine Rectal Exam Rectal:: deferred *Routine Genitalia Exam Genitalia:: deferred *Routine Extremities Exam Extremities: Present full ROM *Routine Skin Exam Skin: Absent erythema *Routine Neurological Exam Neurological: Present alert Assessment and Plan *Assessment and plan (1) Anal discharge: Problem Comment: Etiology somewhat equivocal Status: Acute Category: Medical Code(s): R19.8 - Other specified symptoms and signs involving the digestive system and abdomen Plan: Colonoscopy today I have discussed the risks and benefits including, but not limited to: Bleeding Infection Damage to surrounding tissue Inherent risks of sedation The patient agrees to proceed.
--- NOTE | 2025-10-12 09:08 | HMH.SCOPE ---
Procedure: Date: 10/12/25 Patient Date of :: 1975 Procedure Performed:: Colonoscopy Indications:: Anal discharge Performing Provider:: Ruiz Riojas MD Referring Provider:: . Sedation:: Monitored anesthesia care Procedure:: After informed consent was obtained the patient was taken to the endoscopy suite. Sedation ensued after the patient was transferred to the left lateral decubitus position. Pulse, blood pressure, and oxygen saturation were monitored throughout the procedure. Digital rectal exam revealed no significant abnormality. The colonoscope was placed in position. The entire colon was evaluated. The colonoscope was carefully removed and the patient was transferred to recovery in stable condition. Please see findings and specimens below for detail. Findings:: Bowel preparation poor Fairly severe spasticity/lack of relaxation No definitive etiology to account for recent complaints of anal discharge Specimens:: None Recommendations:: Short-term repeat colonoscopy warranted (deferred to the gastroenterology service). Gastroenterology consultation pending (chronic constipation, vague abdominal pain, bloating, need for short-term repeat colonoscopy, etc.). Complications:: No immediate with the exception of poor bowel preparation Estimated blood obtained (mL): 0 Colonoscopy Component Colonoscopy Component Was a colonoscopy performed during today's procedure?: Yes Recommended follow up colonoscopy of at least 10 years?: No If no, follow up colonoscopy recommended in ___ years?: (See above) Reason for not recommending >/= 10 yr follow-up interval?: (See above)
[2025-10-12 09:28] LABS: HCG Qualitative, Serum Negative (Negative)
[2025-10-12 10:17] VITALS: BP 95/57; PULSE 81; RESP 18; TEMP 36.7; O2SAT 96
[2025-10-12 10:27] VITALS: BP 98/69; PULSE 74; RESP 16; O2SAT 99
[2025-10-12 10:37] VITALS: BP 102/54; PULSE 75; RESP 16; O2SAT 99
[2025-10-12 10:47] VITALS: BP 106/79; PULSE 70; RESP 18; TEMP 36.7; O2SAT 99
== END 2025-10-12 10:47 | disposition home or self-care (01) ==
PROVIDERS: PCP Nurse Practitioner Family; Visit Provider Surgery
PROC: 0DJD8ZZ Inspection of Lower Intestinal Tract, Via Natural or Artificial Opening Endoscopic (ICD-10-PCS; CPT 45378; principal; 2025-10-12 09:30)
DX: R19.8 Other specified symptoms and signs involving the digestive system and abdomen (principal); Z88.5 Allergy status to narcotic agent
CPT/HCPCS: 45378; 84703; J2003; J2704